=== PATIENT | female | born 1975 | race Hispanic/Latino ===

== ENCOUNTER 2018-06-01 11:00 | Day surgery (SDC) | payer OTHER ==
[2018-06-01] MEDS: NS 1,000 ML IV (12:01)
[2018-06-01] MEDS ORDERED: PROPOFOL 500 MG/50 ML VIAL As Ordered (13:41)
[2018-06-01] MEDS ORDERED: fentaNYL 100 MCG/2 ML INJECTION (J3010) As Ordered (13:41)
[2018-06-01] MEDS ORDERED: LIDOCAINE 2% INJ 100 MG/5 ML SYRINGE As Ordered (13:41)
== END 2018-06-01 14:30 | disposition home or self-care (01) ==
LOC: M OPP 11:00
DX: K64.0 First degree hemorrhoids (principal); K62.5 Hemorrhage of anus and rectum; R19.4 Change in bowel habit; K22.8 Other specified diseases of esophagus; K44.9 Diaphragmatic hernia without obstruction or gangrene; K31.89 Other diseases of stomach and duodenum; R12 Heartburn; K21.9 Gastro-esophageal reflux disease without esophagitis; M54.2 Cervicalgia; M79.7 Fibromyalgia; G43.909 Migraine, unspecified, not intractable, without status migrainosus; Z79.899 Other long term (current) drug therapy; Z88.8 Allergy status to other drugs, medicaments and biological substances
CPT/HCPCS: 45380

== ENCOUNTER 2018-08-25 06:17 | Day surgery (SDC) | payer OTHER ==
[2018-08-25 06:46] LABS: CONTROL LINE UCG INT CTR LINE PRESENT; URINE PREG TEST NEGATIVE (NEGATIVE)
[2018-08-25] MEDS ORDERED: MIDAZOLAM INJ 2 MG/2 ML VIAL (J2250) As Ordered (06:55)
[2018-08-25] MEDS ORDERED: fentaNYL 100 MCG/2 ML INJECTION (J3010) As Ordered (06:56)
[2018-08-25] MEDS: LIDOCAINE 3.5 % 1ML OPHTH TOPICAL GEL OU (07:02)
[2018-08-25] MEDS: POVIDONE-IODINE 5% OPHTH PREP SOL 30ML As Ordered (07:41)
[2018-08-25] MEDS: LIDOCAINE 2% W/EPIN INJ 20ML **PRES FREE As Ordered (07:46)
[2018-08-25] MEDS: mitoMYcin 0.2 MG/VIAL KIT FOR OPHTHALMIC USE (J7315 PER 0.2MG) As Ordered (07:57)
[2018-08-25] MEDS: TOBRADEX OPHTH OINT 3.5 GM As Ordered (08:00)
[2018-08-25] MEDS: BETAMETHASONE SOLUSPAN 6MG/ML INJ 5ML (J0702) As Ordered (08:10)
== END 2018-08-25 08:35 | disposition home or self-care (01) ==
LOC: M SDC 06:17
DX: H11.001 Unspecified pterygium of right eye (principal); K21.9 Gastro-esophageal reflux disease without esophagitis; M32.10 Systemic lupus erythematosus, organ or system involvement unspecified; Z79.899 Other long term (current) drug therapy
CPT/HCPCS: 65426

== ENCOUNTER → 2018-11-04 | Outpatient (CLI) | payer OTHER ==
[~2018-11-04] MED LIST: ACET500T15 PO; CELE100C PO; CETI10TA PO; DICL75TA PO; EXCETAB80 PO; FLON1SPR NARES; IBUP200C25 PO; LIDO5TD TOP; LOTE0.5G OD; OMEP40CA2 PO; PROC2.5C PR; REFR0.5D8 OU; TYLE325C PO; ZYRT10CA PO
--- NOTE | 2018-11-04 17:56 | REP ---
RIGHT FOOT, FOUR VIEWS: HISTORY: Injury. There is no acute fracture or dislocation. The joint spaces are normal in appearance. IMPRESSION: There is no acute fracture or dislocation. Electronically Signed by Randall Olson MD 11/04/2018 06:01 P
== END ==
LOC: M LRY 17:09
PROVIDERS: ATTEND Nurse Practitioner Family
DX: S99.921A Unspecified injury of right foot, initial encounter (principal); X58.XXXA Exposure to other specified factors, initial encounter; Y92.9 Unspecified place or not applicable

== ENCOUNTER → 2018-11-05 | Outpatient (REF) | payer OTHER, SELFPAY ==
[~2018-11-05] MED LIST changes: +CARA1TAB6 PO; +ESOM40CA35; +MIDOTAB11 PO; +OLOP1OPD OP; +PEPC1TAB5 PO; +POLYSOL OP; +VITA10002
[2018-11-05 15:06] LABS: CPK CREATINE PHOSPHOKINASE 85 U/L (26-192); FREE T4 0.91 NG/DL (0.76-1.46); RHEUMATOID FACTOR QUANT < 10.0 IU/ML (<15.0)
[2018-11-05 16:00] LABS: FOLATE 16.8 NG/ML (>5.4)
[2018-11-05 16:31] LABS: HEMOGLOBIN A1c 5.3 %
[2018-11-09 07:58] LABS: VITAMIN B12 LEVEL 335 PG/ML (232-1245)
[2018-11-13 00:07] LABS: ALDOLASE 4.5 U/L (3.3-10.3); ANTI DOUBLE STRAND-DNA AB 10 IU/mL (0-9); ANTI-HISTONE ANTIBODIES 0.7 Units (0.0-0.9); ANTINUCLEAR ANTIBODIES DIRECT Positive (Negative); Lyme Disease IgG/IgM Antibodie <0.91 ISR (0.00-0.90); Lyme Disease IgM Ab Quantitati <0.80 index (0.00-0.79); Methylmalonic Acid 70 nmol/L (0-378); RNP ANTIBODIES 0.7 AI (0.0-0.9); SJOGREN'S ANTI SS-A <0.2 AI (0.0-0.9); SJOGREN'S ANTI SS-B <0.2 AI (0.0-0.9); SMITH ANTIBODIES <0.2 AI (0.0-0.9); VITAMIN B1 LEVEL WHOLE BLOOD 107.9 nmol/L (66.5-200.0); VITAMIN E(ALPHA TOCOPHEROL) 8.5 mg/L (7.0-25.1); VITAMIN E(GAMMA TOCOPHEROL) 0.5 mg/L (0.5-5.5)
== END ==
LOC: M LABNEURO 09:39
PROVIDERS: ATTEND Psychiatry & Neurology Neurology
DX: R20.0 Anesthesia of skin (principal); R53.1 Weakness; E07.9 Disorder of thyroid, unspecified; Z11.9 Encounter for screening for infectious and parasitic diseases, unspecified

== ENCOUNTER → 2018-11-13 | Outpatient (REF) | payer OTHER ==
[~2018-11-13] MED LIST changes: -CARA1TAB6 PO; -ESOM40CA35; -MIDOTAB11 PO; -OLOP1OPD OP; -PEPC1TAB5 PO; -POLYSOL OP; -VITA10002
== END ==
LOC: M SFHCLERA 11:13
PROVIDERS: ATTEND Physician Assistant
DX: J02.9 Acute pharyngitis, unspecified (principal)

== ENCOUNTER 2018-12-23 18:16 | Emergency (ER) | payer OTHER ==
[~2018-12-23] VITALS: Ht 147.3 cm; Wt 45.4 kg
[2018-12-23] MEDS ORDERED: VITA10002 (18:30)
[2018-12-23] MEDS ORDERED: ESOM40CA35 (18:30)
[2018-12-23] MEDS ORDERED: TETRACAINE 0.5% OPHTH SOLN 4ML OU ONE (20:45)
[2018-12-23] MEDS ORDERED: FLUORESCEIN OPHTH 1 MG STRIP OU ONE ×2 (20:45→21:00)
[2018-12-23] MEDS ORDERED: OLOPATADINE 0.1% OPHTH SOL 5ML(PATANOL) OU STA (20:59)
[2018-12-23] MEDS ORDERED: POLYTRIM OPTH DROPS 10ML OU STA (20:59)
[2018-12-23 21:02] LABS: BASO # 0.1 10^3/uL (0.0-0.2); BASO % 0.5 % (0.0-1.0); EOS # 0.1 10^3/uL (0.0-0.50); EOS % 0.6 % (0.0-3.0); HEMATOCRIT 37.3 % (36.0-47.0); HEMOGLOBIN 12.4 g/dl (12.0-15.5); LYMPH % 30.8 % (24.0-44.0); MEAN CORPUSCULAR HGB CONC 33.2 g/dl (32.0-36.5); MEAN CORPUSCULAR VOLUME 90.3 fl (80.0-96.0); MONO # 0.8 10^3/uL (0.0-0.8); MONO % 8.8 % (0.0-5.0); NEUTROPHILS # 5.7 10^3/uL (1.8-7.7); NEUTROPHILS % 59.1 % (36.0-66.0); PLATELET COUNT, AUTOMATED 400 10^3/uL (150-450); RED BLOOD COUNT 4.13 10^6/uL (4.00-5.40); WHITE BLOOD COUNT 9.6 10^3/uL (4.0-10.0)
[2018-12-23 21:17] LABS: BLOOD UREA NITROGEN 10 MG/DL (7-18); CALCIUM LEVEL 9.1 MG/DL (8.5-10.1); CARBON DIOXIDE LEVEL 25 MEQ/L (21-32); CHLORIDE LEVEL 107 MEQ/L (98-107); CREATININE FOR GFR 0.66 MG/DL (0.55-1.30); GLOMERULAR FILTRATION RATE > 60.0 (>58); GLUCOSE, FASTING 89 MG/DL (70-100); POTASSIUM SERUM 4.1 MEQ/L (3.5-5.1); SODIUM LEVEL 140 MEQ/L (136-145)
[2018-12-23 21:45] LABS: INR 1.12; PROTHROMBIN TIME 14.5 SECONDS (12.1-14.4)
[2018-12-23 21:46] LABS: PARTIAL THROMBOPLASTIN TIME 31.6 SECONDS (25.4-37.6)
[2018-12-23] MEDS ORDERED: POLYSOL OP (22:09)
[2018-12-23] MEDS ORDERED: OLOP1OPD OP (22:09)
[2018-12-23 22:12] VITALS: BP 110/54
== END 2018-12-23 22:27 | disposition home or self-care (01) ==
LOC: M ED 18:16
DX: H10.9 Unspecified conjunctivitis (principal); S60.022A Contusion of left index finger without damage to nail, initial encounter; X58.XXXA Exposure to other specified factors, initial encounter; Y92.89 Other specified places as the place of occurrence of the external cause; Y93.89 Activity, other specified; Y99.0 Civilian activity done for income or pay; Z88.8 Allergy status to other drugs, medicaments and biological substances

== ENCOUNTER 2018-12-27 20:04 | Emergency (ER) | payer OTHER ==
[~2018-12-27] VITALS: Ht 147.3 cm; Wt 45.5 kg
[~2018-12-27 20:04] MED LIST changes: +ESOM40CA35; +OLOP1OPD OP; +POLYSOL OP; +VITA10002
[2018-12-27] MEDS ORDERED: MIDOTAB11 PO (20:15)
[2018-12-27] MEDS ORDERED: GI COCKTAIL 50ML BTL(HYOSCYAMINE/MAALOX/LIDOCAINE VISCOUS)(1:3:1) PO ONE (20:45)
[2018-12-27] MEDS ORDERED: ONDANSETRON 4MG/2ML VIAL (J2405) As Ordered ONE (20:46)
[2018-12-27 20:51] LABS: BASO # 0.1 10^3/uL (0.0-0.2); BASO % 0.8 % (0.0-1.0); EOS # 0.1 10^3/uL (0.0-0.50); EOS % 1.3 % (0.0-3.0); HEMATOCRIT 37.2 % (36.0-47.0); HEMOGLOBIN 12.3 g/dl (12.0-15.5); LYMPH # 3.8 10^3/uL (1.5-4.5); LYMPH % 44.1 % (24.0-44.0); MEAN CORPUSCULAR HEMOGLOBIN 29.8 pg (27.0-33.0); MEAN CORPUSCULAR HGB CONC 33.1 g/dl (32.0-36.5); MEAN CORPUSCULAR VOLUME 90.1 fl (80.0-96.0); MONO % 12.2 % (0.0-5.0); NEUTROPHILS # 3.5 10^3/uL (1.8-7.7); NEUTROPHILS % 41.2 % (36.0-66.0); PLATELET COUNT, AUTOMATED 421 10^3/uL (150-450); RED BLOOD COUNT 4.13 10^6/uL (4.00-5.40); WHITE BLOOD COUNT 8.5 10^3/uL (4.0-10.0)
[2018-12-27] MEDS ORDERED: ONDANSETRON 4MG/2ML VIAL (J2405) IV ONE (21:00)
[2018-12-27 21:15] LABS: BLOOD UREA NITROGEN 11 MG/DL (7-18); CALCIUM LEVEL 8.8 MG/DL (8.5-10.1); CARBON DIOXIDE LEVEL 24 MEQ/L (21-32); CHLORIDE LEVEL 112 MEQ/L (98-107); CK-MB VALUE MASS < 1.0 NG/ML (<3.6); CPK CREATINE PHOSPHOKINASE 96 U/L (26-192); CREATININE FOR GFR 0.81 MG/DL (0.55-1.30); GLOMERULAR FILTRATION RATE > 60.0 (>58); GLUCOSE, FASTING 107 MG/DL (70-100); MB/CK RELATIVE INDEX 1.04 (< OR =4); POTASSIUM SERUM 3.8 MEQ/L (3.5-5.1); SODIUM LEVEL 142 MEQ/L (136-145); TROPONIN I < 0.02 NG/ML (< 0.10)
[2018-12-27] MEDS ORDERED: PANTOPRAZOLE 40MG INJ (PROTONIX) (C9113) IV ONE (21:45)
[2018-12-27 22:57] VITALS: BP 106/71
[2018-12-27] MEDS ORDERED: CARA1TAB6 PO ×2 (23:02→23:30)
[2018-12-27] MEDS ORDERED: PEPC1TAB5 PO ×2 (23:02→23:30)
[2018-12-27] MEDS ORDERED: SUCRALFATE 1 GM TAB PO ONE (23:15)
[2018-12-27] MEDS ORDERED: FAMOTIDINE 20 MG TAB PO ONE (23:15)
--- NOTE | 2018-12-28 03:57 | REP ---
Clinical: Acute chest pain . Comparison: None . Findings: The mediastinum and cardiac silhouette are stable and within normal limits for portable technique. The lung pope are clear without acute consolidation, effusion, or pneumothorax. Skeletal structures are intact. Impression: No acute cardiopulmonary process appreciated. Electronically Signed by Xiang Avilez MD 12/28/2018 03:48 A
--- NOTE | 2018-12-28 06:26 | ECGEPIP ---
Stationary ECG Study [facility] - ED Test Date: 2018-12-27 Pat Name: MELA REINOSO Department: Room: - Gender: F Prototype Sewer: ct : 1975 Requested By: TUCKER Atkins Order Number: [id number] Reading MD: Pee Nolen Measurements Intervals [place] Rate: 78 P: 54 CA: 130 QRS: 79 QRSD: 89 T: 41 QT: 378 QTc: 433 Interpretive Statements SINUS RHYTHM NSTTW ABNORMALITIES NO PRIORS FOR COMPARISON Electronically Signed On 12-28-2018 6:25:23 EDT by Pee Nolen
== END 2018-12-27 23:32 | disposition home or self-care (01) ==
LOC: M ED 20:04
DX: K21.9 Gastro-esophageal reflux disease without esophagitis (principal); M51.9 Unspecified thoracic, thoracolumbar and lumbosacral intervertebral disc disorder; Z79.899 Other long term (current) drug therapy; Z88.8 Allergy status to other drugs, medicaments and biological substances
CPT/HCPCS: 71045; 80048; 82550; 82553; 84484; 85025; 93005; 93041; 94760; 96374; 96375; 99284; C9113; J2405

== ENCOUNTER 2019-01-18 18:13 | Emergency (ER) | payer OTHER ==
[~2019-01-18] VITALS: Ht 147.3 cm; Wt 45.5 kg
[~2019-01-18 18:13] MED LIST changes: +CARA1TAB6 PO; +MIDOTAB11 PO; -OLOP1OPD OP; +PATA2.5S OP; +PEPC1TAB5 PO
[2019-01-18 19:42] LABS: BASO % 0.5 % (0.0-1.0); EOS # 0.1 10^3/uL (0.0-0.50); EOS % 0.8 % (0.0-3.0); HEMATOCRIT 37.6 % (36.0-47.0); HEMOGLOBIN 12.3 g/dl (12.0-15.5); LYMPH # 3.5 10^3/uL (1.5-4.5); LYMPH % 56.7 % (24.0-44.0); MEAN CORPUSCULAR HEMOGLOBIN 29.6 pg (27.0-33.0); MEAN CORPUSCULAR HGB CONC 32.7 g/dl (32.0-36.5); MEAN CORPUSCULAR VOLUME 90.4 fl (80.0-96.0); MONO # 0.7 10^3/uL (0.0-0.8); NEUTROPHILS # 1.8 10^3/uL (1.8-7.7); NEUTROPHILS % 29.8 % (36.0-66.0); PLATELET COUNT, AUTOMATED 269 10^3/uL (150-450); RED BLOOD COUNT 4.16 10^6/uL (4.00-5.40); WHITE BLOOD COUNT 6.1 10^3/uL (4.0-10.0)
[2019-01-18 19:45] LABS: URINE PREG TEST NEGATIVE (NEGATIVE)
[2019-01-18 20:06] LABS: ALBUMIN 3.7 GM/DL (3.2-5.2); ALT/SGPT 23 U/L (12-78); AMYLASE 135 U/L (25-115); BILIRUBIN,DIRECT < 0.1 MG/DL (0.0-0.2); BILIRUBIN,TOTAL 0.2 MG/DL (0.2-1.0); BLOOD UREA NITROGEN 12 MG/DL (7-18); CALCIUM LEVEL 8.4 MG/DL (8.5-10.1); CARBON DIOXIDE LEVEL 25 MEQ/L (21-32); CHLORIDE LEVEL 111 MEQ/L (98-107); CREATININE FOR GFR 0.68 MG/DL (0.55-1.30); GLOMERULAR FILTRATION RATE > 60.0 (>58); GLUCOSE, FASTING 84 MG/DL (70-100); LIPASE 159 U/L (73-393); POTASSIUM SERUM 3.8 MEQ/L (3.5-5.1); SODIUM LEVEL 141 MEQ/L (136-145); TOTAL PROTEIN 7.2 GM/DL (6.4-8.2)
[2019-01-18] MEDS ORDERED: KETOROLAC TROMETHAMINE 10 MG TAB PO ONE (22:15)
[2019-01-18 22:46] VITALS: BP 110/56
--- NOTE | 2019-01-19 00:13 | REPVR ---
EXAM: US Abdomen Complete EXAM DATE/TIME: 01/18/2019 11:04 PM CLINICAL HISTORY: 43 years old, female; Flank pain and right upper quadrant abdominal pain. TECHNIQUE: Imaging protocol: Real-time ultrasound of the abdomen with image documentation. COMPARISON: No relevant prior studies available. FINDINGS: Liver: The echogenicity of the liver is within normal limits. No liver lesion is identified from the images obtained. The contour of the liver is smooth. Gallbladder: Normal. No gallstones, sonographic Ridley's sign, mass, gallbladder wall thickening, or pericholecystic fluid. Common bile duct: The common bile duct is normal in caliber and measures 5.6 mm in diameter at the level of the margot hepatis. Pancreas: The tail of the pancreas was obscured by gas in the stomach and bowel. The visualized in the body of the pancreas are unremarkable. Right kidney: The right kidney is normal in appearance. There is no renal cortical thinning. The renal cortical echogenicity is within normal limits. No renal lesion is seen. There is no hydronephrosis. No obvious stones are seen in the renal collecting system. The right kidney measures 9.1 cm in length. Left kidney: The left kidney is normal in appearance. There is no renal cortical thinning. The renal cortical echogenicity is within normal limits. No renal lesion is seen. There is no hydronephrosis. No obvious stones are seen in the renal collecting system. The left kidney measures 10.2 cm in length. Spleen: The spleen is normal in appearance and measures 7.2 cm x 3.8 cm x 6.3 cm. Aorta: The abdominal aorta is normal in caliber. Inferior vena cava: The imaged portion of the inferior vena cava is patent. Intraperitoneal space: No free fluid is seen from the images obtained. IMPRESSION: No sonographic abnormality seen in the abdomen. Electronically signed by: Winston Winn On 01/19/2019 00:13:06 AM
[2019-01-19] MEDS ORDERED: VALI5TAB PO (00:21)
[2019-01-19] MEDS ORDERED: KETO10TAB PO (00:21)
== END 2019-01-19 00:28 | disposition home or self-care (01) ==
LOC: M ED 18:13
DX: R10.9 Unspecified abdominal pain (principal); F43.10 Post-traumatic stress disorder, unspecified; F41.9 Anxiety disorder, unspecified; F32.9 Major depressive disorder, single episode, unspecified; Z87.891 Personal history of nicotine dependence; Z88.8 Allergy status to other drugs, medicaments and biological substances; Z79.899 Other long term (current) drug therapy

== ENCOUNTER → 2019-01-26 | Outpatient (REF) | payer OTHER ==
[~2019-01-26] MED LIST changes: +KETO10TAB PO; +VALI5TAB PO
== END ==
LOC: M SFHCPLAZ 11:02
PROVIDERS: ATTEND Internal Medicine Rheumatology
DX: R76.8 Other specified abnormal immunological findings in serum (principal)

== ENCOUNTER 2020-04-14 00:09 | Emergency (ER) | payer OTHER ==
[~2020-04-14] VITALS: Ht 147.3 cm; Wt 43.2 kg
[~2020-04-14 00:09] MED LIST changes: +CYAN100049; -OMEP40CA2 PO; +OMEP40CA97 PO; -VITA10002
[2020-04-14] MEDS ORDERED: HYDR-3713 PO (00:28)
[2020-04-14] MEDS ORDERED: NS 1,000 ML IV ONE (01:00)
[2020-04-14] MEDS ORDERED: KETOROLAC 30 MG/ML 1ML VIAL IV ONE (01:00)
--- NOTE | 2020-04-14 01:00 | ECGEPIP ---
[facility] [place] - ED Test Date: 2020-04-14 Pat Name: MELA REINOSO Department: Room: - Gender: Female [employer]: ta : 1975 Requested By: TUCKER Atkins Order Number: [id number] Reading MD: Rohan Bernal Measurements Intervals [place] Rate: 68 P: 73 TN: 158 QRS: 86 QRSD: 83 T: 57 QT: 405 QTc: 434 Interpretive Statements SINUS RHYTHM Nonspecific ST-T wave abnormalities Similar to tracing done 12-27-18 Electronically Signed on 04-14-2020 1:00:20 EDT by Rohan Bernal
[2020-04-14 01:41] LABS: BASO % 0.3 % (0.0-1.0); EOS % 0.4 % (0.0-3.0); HEMATOCRIT 37.8 % (36.0-47.0); HEMOGLOBIN 12.7 g/dl (12.0-15.5); LYMPH # 2.7 10^3/uL (1.5-5.0); LYMPH % 25.8 % (24.0-44.0); MEAN CORPUSCULAR HEMOGLOBIN 30.9 pg (27.0-33.0); MEAN CORPUSCULAR HGB CONC 33.6 g/dl (32.0-36.5); MONO # 0.9 10^3/uL (0.0-0.8); MONO % 8.3 % (0.0-5.0); NEUTROPHILS # 6.9 10^3/uL (1.5-8.5); NEUTROPHILS % 64.7 % (36.0-66.0); PLATELET COUNT, AUTOMATED 315 10^3/uL (150-450); RED BLOOD COUNT 4.11 10^6/uL (4.00-5.40); WHITE BLOOD COUNT 10.6 10^3/uL (4.0-10.0)
[2020-04-14 02:10] LABS: ALT/SGPT 16 U/L (12-78); BILIRUBIN,DIRECT 0.1 MG/DL (0.0-0.2); BILIRUBIN,TOTAL 0.3 MG/DL (0.2-1.0); CK-MB VALUE MASS < 1.0 NG/ML (<3.6); CPK CREATINE PHOSPHOKINASE 85 U/L (26-192); LIPASE 184 U/L (73-393); MB/CK RELATIVE INDEX 1.18 (< OR =4); TOTAL PROTEIN 7.9 GM/DL (6.4-8.2); TROPONIN I < 0.02 NG/ML (< 0.10)
[2020-04-14 03:00] VITALS: BP 120/71
--- NOTE | 2020-04-14 07:59 | REP ---
Clinical: Chest and abdominal pain . Comparison: 12/27/2018 Technique: PA and lateral. Findings: The mediastinum and cardiac silhouette are normal. The lung pope are clear and without acute consolidation, effusion, or pneumothorax. The skeletal structures are intact and normal. Impression: 1. No acute cardiopulmonary process. Electronically Signed by Xiang Avilez MD 04/14/2020 07:50 A
== END 2020-04-14 03:22 | disposition home or self-care (01) ==
LOC: M ED 00:09
DX: R07.9 Chest pain, unspecified (principal); M79.7 Fibromyalgia; K21.9 Gastro-esophageal reflux disease without esophagitis; Z79.891 Long term (current) use of opiate analgesic; Z79.899 Other long term (current) drug therapy; Z88.8 Allergy status to other drugs, medicaments and biological substances
CPT/HCPCS: 71046; 80047; 80076; 82550; 82553; 83605; 83690; 84484; 85025; 93005; 93041; 96361; 96374; 99285; J1885